=== PATIENT | female | born 1925 | race Caucasian/White ===

== ENCOUNTER 2016-12-22 12:36 | Emergency (ER) | payer MEDICARE ==
[~2016-12-22] VITALS: Ht 165.1 cm; Wt 80.5 kg
[2016-12-22 13:48] VITALS: BP 148/88
== END 2016-12-22 13:35 | disposition home or self-care (01) ==
LOC: ED 12:38
DX: I83.811 Varicose veins of right lower extremity with pain (principal)
CPT/HCPCS: 99281; 99282

== ENCOUNTER → 2017-01-08 | Outpatient (CLI) | payer MEDICARE | LOC: RT 12:54 | PROVIDERS: ATTEND Family Medicine | DX: R06.00 Dyspnea, unspecified (principal) | CPT/HCPCS: 94060 ==

== ENCOUNTER 2017-04-05 09:32 | Emergency (ER) | payer MEDICARE ==
[~2017-04-05] VITALS: Ht 165.1 cm; Wt 80.0 kg
[~2017-04-05 09:32] MED LIST: AC325T PO; ALBU8CC INH; AML5T PO; AMOX875T2 PO; ASPI-479 PO; ATOR10TA PO; BENZ-22 PO; CALC1TAB75 PO; CEFD300C PO; CHOL100061 PO; GFN600TCR PO; GUAI5SYR PO; IMIP25TA14 PO; INDA1.25 PO; ISM30TCR PO; ISOS30TA82 PO; LSRT50T PO; LVT.025T PO; LVT.05T PO; METO-270 PO; MIRALAX 17 GM P17 GM PO; NITR0.4T SL; OMEP20TA PO; OMEP40CA36 PO; ONDA-51 PO; OXYC1TAB5 PO; PITA4TAB PO; POLY17PO6 PO; SCR1T1 PO; SPRN25T PO; TIOT18CA INH; TRM50T PO
--- OUTSIDE RECORDS SUMMARY | 2017-04-05 09:38 | XMS REPORT | Continuity of Care Document ---
Author Author [facility] Address Unknown Phone Unavailable Care Team Providers Care Building Manager Name Role Phone Ronald Parmar MD PCP [phone] Insurance Providers Payer Name Policy Number Subscriber Name Relationship Medicare A And B [id number] Nehemias James 20 Self / Same As Patient [employer] [facility] Supp [id number] Nehemias James 20 Self / Same As Patient Advance Directives Directive Response Recorded Date/Time Advanced Directives Yes 12/22/16 12:45pm Type Durable Power of Counter [place] 12/22/16 12:45pm Type Living Will 12/22/16 12:45pm Chief Complaint and Reason for Visit Chief Complaint Circulatory Compromise Reason for Visit [id number] Problems Active Problems Medical Problem Onset Date Status Acute respiratory distress 12/26/2014 Resolved Angina 05/04/2012 Resolved Chest pain 10/28/2013 Resolved Chest pain on exertion 10/28/2013 Resolved Chest pressure 12/26/2014 Resolved Chest wall pain ~07/25/2014 Resolved Community acquired pneumonia Unknown Acute Cough Unknown Acute Diverticulitis 03/21/2015 Acute Dyspnea on exertion 12/26/2014 Resolved Hypothyroidism 12/27/2014 Chronic Hypoxia 12/26/2014 Resolved Nausea 12/26/2014 Resolved Rectal bleeding 03/21/2015 Acute Shoulder injury ~05/23/2015 Acute Upper respiratory infection Unknown Acute Varicose vein of leg Unknown Acute Medications Current Home Medications Medication Dose Units Route Directions Days/Qty Instructions Start Date Aspirin 81 Mg 81 Mg ORAL Daily 05/04/12 Spironolactone (Aldactone) 25 Mg 12.5 Mg ORAL Daily 05/04/12 Amlodipine Besylate (Norvasc) 5 Mg 5 Mg ORAL Daily 05/04/12 Losartan Potassium (Cozaar) 50 Mg 50 Mg ORAL Daily 05/04/12 Indapamide 1.25 Mg 0.625 Mg ORAL Daily 1/2 TABLET DAILY=0.625 MG 05/04 Pitavastatin Calcium 4 Mg 1 Mg ORAL Daily 10/28/13 Cholecalciferol (Vitamin D3) 1,000 Unit 1,000 Units ORAL Daily 10/28 Tiotropium Edward 18 Mcg 18 Mcg RESPIRATORY (INHALATION) Daily Albuterol Sulfate 90 Mcg/1 Puff 2 Puff RESPIRATORY (INHALATION) Every 4HRS as needed for Dyspnea 10/28/13 Omeprazole 20 Mg 20 Mg ORAL Twice A Day 12/26/14 Imipramine Hcl (Tofranil) 25 Mg 25 Mg ORAL Bedtime 30 12/27/14 Levothyroxine Sodium (Synthroid) 50 Mcg 50 Mcg ORAL Daily 30 12/27/14 Polyethylene Glycol 3350 17 Gm 17 Gm ORAL Daily 02/14/16 Ondansetron Hcl 8 Mg 8 Mg ORAL Every 8HRS as needed for Nausea/Vomiting 30 02/14/16 Isosorbide Mononitrate (Imdur) 30 Mg 30 Mg ORAL Daily 90 02/14/16 Past Home Medications Medication Directions Ordered Status Omeprazole 40 Mg Capsule.dr, 20 Mg Oral Twice A Day 05/04/12 Discontinued Metoprolol Succinate 25 Mg Tab.er.24h, 25 Mg Oral Twice A Day 05/04/12 Discontinued Levothyroxine Sodium (Synthroid) 25 Mcg Tablet, 25 Mcg Oral Daily 05/04/12 Discontinued Atorvastatin 10 Mg Tablet, 10 Mg Oral Daily 05/04/12 Discontinued Isosorbide Mononitrate 30 Mg Tab.er.24h, 30 Mg Oral Daily 10/28/13 Discontinued Calcium Carbonate/Vitamin D3 1 Each Tablet, 1 Tab Oral Twice A Day 10/28/13 Discontinued Tramadol Hcl (Ultram) 50 Mg Tablet, 50 Mg Oral Every 8HRS 07/26/14 Discontinued Nitroglycerin 0.4 Mg Tab.subl, 0.4 Mg Sublingual As Needed as needed for Angina 12/26/14 Discontinued Sucralfate (Carafate) 1 Gm Tablet, 1 Gm Oral Bedtime 12/27/14 Discontinued Polyethylene Glycol 17 Gm Pack, 17 Gm Oral As Needed for Constipation Discontinued Amoxicillin 875 Mg Tablet, 875 Mg Oral Twice A Day 02/10/16 Discontinued Oxycodone/Acetaminophen 1 Each Tablet, 1 Tab Oral Daily 02/14/16 Discontinued Benzonatate 100 Mg Capsule, 100-200 Mg Oral Every 8HRS as needed for Cough Discontinued Acetaminophen (Tylenol) 325 Mg Tablet, 325-650 Mg Oral Every 6 Hours as needed for Pain 02/14/16 Discontinued Guaifenesin 600 Mg Tab, 1200 Mg Oral Twice A Day 02/17/16 Discontinued Guaifenesin/Dextromethorphan 5 Ml Syrup, 5 Ml Oral Every 6 Hours as needed for Cough 02/17/16 Discontinued Cefdinir (Omnicef) 300 Mg Capsule, 300 Mg Oral Twice A Day 02/17/16 Discontinued Social History Social History Problem Response Recorded Date/Time Onset Date Status Exposure to occupational hazards No 02/14/2016 12:41pm Query Response Start Date Stop Date Smoking Status Former smoker Hospital Discharge Instructions No hospital discharge instructions. Plan of Care Discharge Date 12/22/16 1:35pm Disposition 01 HOME OR SELF-CARE Condition at Discharge Stable Instructions/Education Provided Varicose Veins and Other Vein Disease in the Legs Prescriptions See Medication Section Referrals Ronald Parmar MD - Additional Instructions/Education You have varicose veins, but no deep vein clots. You should continue to wear support hose and see your doctor if they continue to bother you. Some of your test results may not be complete prior to your leaving the Emergency Department. The Emergency Department is not authorized to give test results over the phone. Please contact the doctor's office listed in this packet of information for your final results. Follow up with your primary care physician or return to the Emergency Department for worsening or worrisome symptoms. * Emergency Department phone number: [phone], x [phone]* MEDICAL RECORD If you need copies of your X-rays, call [phone]. If you need copies of your medical record, including lab results, a signed authorization for release of records will be required. A telephone call for release of Health Information is not allowed. BILLING Billing can sometimes be confusing and frustrating. To help avoid confusion in the future, please take a moment to acquaint yourself with the billing parties for services. SERVICE BILLING LIBERTARIAN Emergency Room Services [facility] Physician Services [facility] X-rays [place] [facility] Patients will receive bills for services from the appropriate provider. If you have any questions about your [facility] bill, our staff will be happy to assist you. Please call [phone], and ask for the billing department. THANK YOU for choosing [facility] as your emergency care provider! Care Plan and Goals All discharge instructions reviewed with patient and/or family. Patient/family verbalized understanding. Questions invited and answered. Functional Status No functional status results. Allergies, Adverse Reactions, Alerts Allergen Type Severity Reaction Status Last Updated Angiotensin-converting enzyme inhibitor Adverse Reaction Unknown COUGH Active 12/26/14 Sulfamethoxazole Adverse Reaction Unknown DYSPNEA Active 12/26/14 Trimethoprim Adverse Reaction Unknown DYSPNEA Active 12/26/14 Simvastatin Adverse Reaction Unknown MYALGIAS Active 12/26/14 levofloxacin Adverse Reaction Unknown JOINT PAIN AND WEAKNESS Active 12/26 atorvastatin Adverse Reaction Unknown MYALGIAS Active 12/26/14 Immunizations Name Given Type Status Date Pneumonia Vaccine Received if Current 08/22/13 Historical Historical Date Influenza Vaccine Received if Current 09/28/14 Historical Historical Vital Signs Acute Vital Signs Vital Response Date/Time Temperature (Fahrenheit) 97.3 12/22/2016 1:48pm Pulse 84 bpm 12/22/2016 1:48pm Respirations 20 12/22/2016 1:48pm Height 5 ft 5 in Weight 177 lb Body Mass Index 29.0 kg/m^2 Results No known relevant diagnostic tests, laboratory data and/or discharge summary. Procedures No known history of procedures. Encounters Encounter Location Arrival/Admit Date Discharge/Depart Date Attending Provider Departed Emergency Room [facility] 12/22/16 12:38pm 12/22/16 1:35pm RADHA YOO DO Recent Diagnosis
[2017-04-05 09:57] VITALS: BP 148/82
--- NOTE | 2017-04-05 10:05 | NUR ---
Patient report has been received from Triage Nurse and care of pt now assumed by this nurse.
--- NOTE | 2017-04-05 10:06 | NUR ---
Patient attempting to provide urine specimen.
--- NOTE | 2017-04-05 10:08 | NUR ---
Urine specimen provided by pt and sent to lab.
[2017-04-05] MEDS ORDERED: fentaNYL 100 MCG/2 ML VIAL IV STA (10:18)
[2017-04-05] MEDS ORDERED: SODIUM CHLORIDE FLUSH 10 ML SYR IV PRN (10:20)
[2017-04-05 10:32] LABS: BASOPHILS % (AUTO) 0 % (0-2); EOSINOPHILS # (AUTO) 0.2 10^3uL; EOSINOPHILS % (AUTO) 2 % (0-4); LYMPHOCYTES # (AUTO) 1.7 X10^3; MEAN CORPUSCULAR HEMOGLOBIN 29.2 PG (26.0-34.0); MEAN CORPUSCULAR HGB CONC 33.7 g/dL (31.0-37.0); MEAN CORPUSCULAR VOLUME 87 FL (80-100); MONOCYTES # (AUTO) 0.9 X10^3; MONOCYTES % (AUTO) 9 % (3-11); NEUTROPHILS # (AUTO) 6.4 X10^3; NEUTROPHILS % (AUTO) 70 % (51-67); PLATELET COUNT 221 10^3uL (150-450); WHITE BLOOD COUNT 9.13 10^3uL (4.0-11.0)
[2017-04-05] MEDS: SODIUM CHLORIDE FLUSH 3 ML SYR IV PRN ×4 (10:35→11:07)
[2017-04-05 10:36] LABS: BILIRUBIN,URINE Negative (Negative); CLARITY,URINE Clear; COLOR,URINE Yellow; GLUCOSE, URINE (UA) Negative (Negative); LEUKOCYTE ESTERASE ,URINE Trace (Negative); UROBILINOGEN,URINE 0.2 mg/dL (0.2-1.0)
[2017-04-05 10:42] LABS: URINE CENTRIFUGED VOLUME <10mL Unspun
[2017-04-05 10:44] LABS: ALBUMIN 4.6 g/dL (3.4-5.0); ANION GAP 15.1 MEQ/L (3-15); CALCULATED IONIZED CALCIUM 4.2 mg/dL (3.8-4.6)
[2017-04-05] MEDS ORDERED: KETOROLAC 30 MG/ML (TORADOL) 1 ML VIAL IV ONE (10:55)
--- NOTE | 2017-04-05 10:55 | NUR ---
Patient report of pain at "7" after brief period of mild improvement reported to Dr. Chao.
--- NOTE | 2017-04-05 11:50 | Diagnostic Imaging Report ---
PROCEDURE: CT abdomen and pelvis without contrast. TECHNIQUE: Multiple contiguous axial images were obtained through the abdomen and pelvis without the use of intravenous contrast. INDICATION: Right-sided flank pain. Study compared 11/24/2014. Moderate right hydronephrosis has developed with dilatation of its extrarenal pelvis now measuring 5.9 cm transverse, previously 2.2 cm. There is calyceal distention in upper and lower pole calyces. The is a transition in caliber at the ureteropelvic junction where no identifiable stone is found. As this is a new finding, this would not be consistent with chronic UPJ stenosis. No focal edema. The right ureter below that level is nondilated and showed no appreciable intraluminal stone. There is no calculus within the urinary bladder lumen. There is no significant perinephric edema or fluid collection. The nondilated left kidney showed no stone. A hyperdense exophytic nodule off its mid pole unchanged from prior measuring 12 mm. The adrenals are negative. Pancreas unremarkable although fatty. Gallbladder surgically absent. There is a tiny left hepatic lobe cyst stable. There is a small pericardial effusion partially visualized and a small hiatal hernia. Both these findings unchanged from the old exam. Lung bases themselves nonacute. There is no evidence for bowel obstruction. There are noninflamed diverticula at the sigmoid. Uterus, adnexa, and unopacified urinary bladder unremarkable. Aortoiliac atherosclerosis nonaneurysmal. IMPRESSION: Right hydronephrosis to the level of its ureteropelvic junction. This is a new finding from a previous exam. No visualized opaque stone. No substantial perinephric edema. No urinoma or fluid collection. Consider nuclear medicine Lasix renography to differentiate an obstructed versus nonobstructive dilated system. Hyperdense left renal nodule exophytic unchanged from prior. Hiatal hernia and small pericardial effusion. No adenopathy. Noninflamed diverticulosis. Negative bladder. Dictated by: Dictated on workstation # [id number]
--- NOTE | 2017-04-05 12:15 | NUR ---
Dr. Chao has spoken to patient and patient's daughter regarding CT report by Radiologist, other test results, and his plan to speak to Urologist about her condition/findings.
--- NOTE | 2017-04-05 12:16 | NUR ---
Patient resting quietly on ER cart. Reports pain is "less than what I told you before" (which was "5-6") but is unable/unwilling to place number on level of discomfort. Patient does not appear to be at all uncomfortable. Denies nausea.
--- NOTE | 2017-04-05 12:22 | NUR ---
Dr. Chao now speaking to Urologist (Dr. Ramona Alba) per phone.
[2017-04-05] MEDS ORDERED: HYDR-3702 PO (12:46)
== END 2017-04-05 12:53 | disposition home or self-care (01) ==
LOC: EDUNIT# 09:32 → ED 09:34
DX: N13.30 Unspecified hydronephrosis (principal); R10.84 Generalized abdominal pain; M54.89 Other dorsalgia
CPT/HCPCS: 36415; 74176; 80053; 81003; 81015; 83690; 85025; 87088; 96374; 96375; 99283; J1885; J3010